=== PATIENT | male | born 1995 | race Caucasian/White ===

== ENCOUNTER 2020-04-10 08:44 | Emergency (ER) | payer SELFPAY ==
[2020-04-10 08:59] VITALS: BP 117/70
--- NOTE | 2020-04-10 09:50 | ER Document Report ---
ED General - General Chief Complaint: Flank Pain Stated Complaint: FLANK PAIN Time Seen by Provider: 04/10/20 09:12 - HPI Notes: Chief complaint: Follow-up kidney stone History of present illness: Basically healthy 24-year-old male seen here by another provider 10 days ago with left-sided flank pain and found to have a 3.7 cm UVJ stone on the left on noncontrast CT scan of abdomen pelvis. He was sent out with Zofran and ibuprofen and these medicines have adequately managed his symptoms although he is breaking through intermittently with some pain which he describes as about a 3/10 and usually lasting for less than 1/2-hour. He has not been back to see urology. He was under the impression he should come back here for follow-up. He denies any fever chills or any other new problems. He takes no long-term medications and has no known allergies. Patient works for a [employer]. - Related Data Allergies/Adverse Reactions: No Known Allergies Allergy (Unverified 03/30/20 23:51) Past Medical History - General Information source: Patient, [facility] Records - Social History Smoking Status: Former Smoker Frequency of alcohol use: Social Drug Abuse: None Family History: Reviewed & Not Pertinent Renal/ Medical History: Reports: Hx Kidney Stones Review of Systems - Review of Systems Notes: Constitutional: Negative for fever. HENT: Negative for sore throat. Eyes: Negative for visual changes. Cardiovascular: Negative for chest pain. Respiratory: Negative for shortness of breath. Gastrointestinal: As per HPI. Genitourinary: As per HPI. Musculoskeletal: As per HPI. Skin: Negative for rash. Neurological: Negative for headaches, weakness or numbness. 10 point ROS negative except as marked above and in HPI. Physical Exam - Vital signs Vitals: Temp Pulse Resp BP Pulse Ox 98.5 F 92 16 117/70 99 04/10/20 08:47 04/10/20 08:47 04/10/20 08:47 04/10/20 08:47 04/10/20 08:47 - Notes Notes: GENERAL: Slender male of approximately stated age appearing in no acute distress. SKIN: Good turgor no rashes. HEAD: Normocephalic atraumatic. EYES: PERRLA. EOMI. Conjunctivae and sclerae clear. NECK: Supple. No masses or thyromegaly. No adenopathy. Carotids 2+ without bruits. No JVD. BACK: Symmetrical without tenderness. CHEST: Respirations unlabored. Breath sounds clear and symmetrical. HEART: Regular rhythm. No murmur gallop or rub. ABDOMEN: Soft nontender without masses, organomegaly or rebound. Bowel sounds normally active. No bruits. EXTREMITIES: No edema. No calf tenderness. Cap refill less than 1.5 seconds. Dorsalis pedis and posterior tibial pulses 3+ and symmetrical. NEUROLOGICAL: Alert and oriented x3. Nonfocal. PSYCHIATRIC: Appropriate affect. Course - Re-evaluation Re-evalutation: 04/10/20 09:48 Patient is completely stable today. I evaluated his imaging from prior visit. Advised him that he should be able to pass the stone spontaneously encouraged him to stay on present medications increase oral fluids. I have given him a doctor's note for work for the next 3 days and referred him to outpatient neurology clinic for follow-up. Findings, clinical impression and plan of treatment have been discussed with patient/family. Understanding of current findings and recommendations has been acknowledged by them and there is agreement regarding disposition and follow-up. - Vital Signs Vital signs: Temp Pulse Resp BP Pulse Ox 98.5 F 92 16 117/70 99 04/10/20 08:47 04/10/20 08:47 04/10/20 08:47 04/10/20 08:47 04/10/20 08:47 Discharge - Discharge Clinical Impression: Ureterolithiasis left Condition: Stable Disposition: HOME, SELF-CARE Additional Instructions: Kidney Stone You are passing or have passed a kidney stone. These stones are usually due to increased calcium or uric acid concentrations in your urine. Stones within the kidney itself are not painful. The pain occurs as the stone leaves the kidney to pass down the long tube, called the ureter, leading to the bladder. If the stone is small, it will usually pass by itself. Most patients can pass the stone at home. You will usually receive medications for pain, nausea or vomiting, and sometimes a medication to assist in passing the kidney stone. However, if the pain is very severe or if vomiting prevents you from taking oral pain medications, you may need to return for further treatment. Drink three or four quarts of fluids per day. You will be given pain medication (if needed) and urine strainers. Strain all your urine to see if the stone passes. If your doctor has asked you to bring the stone in for analysis, return with the stone once it has passed. Return if pain or vomiting become severe, if you develop a high fever, if you are unable to pass your urine, or if other unusual symptoms occur. Return here as needed for new or worsening symptoms: Pain that is worsening or unimproved Uncontrolled vomiting High fever or shaking chills Overall worsening You will be provided a work note for the next 3 days. Follow-up with referral urologist at your earliest convenience. Referrals: [facility] [Provider Group] - Follow up as needed
== END 2020-04-10 09:54 | disposition home or self-care (01) ==
LOC: ER 08:44
DX: N20.1 Calculus of ureter (principal); R10.9 Unspecified abdominal pain; Z87.442 Personal history of urinary calculi
CPT/HCPCS: 99282